=== PATIENT | female | born 1960 | race Caucasian/White ===

== ENCOUNTER 2017-01-31 18:59 | Emergency (ER) | payer OTHER ==
[~2017-01-31] VITALS: Ht 167.6 cm; Wt 56.7 kg
[2017-01-31] MEDS ORDERED: ANASTROZOLE1 MG PO (19:09)
[2017-01-31 20:56] VITALS: BP 125/79
== END 2017-01-31 20:59 | disposition home or self-care (01) ==
LOC: ER 18:59
DX: S01.01XA Laceration without foreign body of scalp, initial encounter (principal); W22.8XXA Striking against or struck by other objects, initial encounter; Y93.89 Activity, other specified; Y92.89 Other specified places as the place of occurrence of the external cause; Y99.8 Other external cause status